=== PATIENT | female | born 1955 | race Caucasian/White ===

== ENCOUNTER 2017-01-06 17:39 | Emergency (ER) | payer MEDICAID ==
[~2017-01-06] VITALS: Ht 142.2 cm; Wt 138.3 kg
[~2017-01-06 17:39] MED LIST: AMLO5TAB8 PO; ATOR20TA PO; HUM SUBQ; IBUP-974 PO; INSU100S22 SC; LOSA100T1 PO
[2017-01-06 17:49] VITALS: BP 161/83
[2017-01-06] MEDS ORDERED: ALBU-136 INH (17:58)
[2017-01-06] MEDS ORDERED: FURO-572 PO (17:58)
[2017-01-06] MEDS ORDERED: NACL 0.9% 1,000 ML IV SCH (18:16)
[2017-01-06] MEDS ORDERED: FAMOTIDINE 20 MG/2 ML VIAL IVP ONE (18:20)
[2017-01-06] MEDS ORDERED: ONDANSETRON 4 MG/2 ML VIAL IVP ONE (18:20)
--- NOTE | 2017-01-06 18:45 | NUR ---
PT W/C TO BED 4.
--- NOTE | 2017-01-06 18:58 | NUR ---
61F BIB FAMILY C/O BL LOWER ABDOMINAL PAIN, RADIATES TO LOWER BACK, ACHING, 10/10 X 3 DAYS; PT DENIES TRAUMA OR INJURY TO SITE; PT C/O 1 EPISODE OF VOMITING, BUT DENIES DIARRHEA AT THIS TIME; ABDOMEN ROUND, SOFT, NON-TENDER, ACTIVE BOWEL SOUNDS X 4 QUADRANTS; PT A&OX4, PERRLA, BL LUNG SOUNDS CLEAR, RR EVEN/UNLABORED, SKIN IS WARM/DRY/INTACT AT THIS TIME; PT PLACED ON MONITOR, RESTING IN BED W/ HOB ELEVATED AND IN LOWEST POSITION; POSITIONED FOR COMFORT; HX: DM, HTN, HYPERLIPIDEMIA, ASHTMA; ER MD MADE AWARE OF STATUS. WILL CONTINUE TO MONITOR.
[2017-01-06 19:03] LABS: BASOPHILS # (AUTO) 0.2 K/uL (0.00-0.22); BASOPHILS % (AUTO) 2.4 % (0.0-2.0); EOSINOPHILS # (AUTO) 0.3 K/uL (0-0.4); EOSINOPHILS % (AUTO) 3.2 % (0.0-4.0); HEMATOCRIT 41.8 % (36-48); HEMOGLOBIN 13.5 g/dL (12.0-16.0); LYMPHOCYTES # (AUTO) 2.1 K/uL (2.5-16.5); LYMPHOCYTES % (AUTO) 25.4 % (20.5-51.1); MEAN CORPUSCULAR HEMOGLOBIN 29 pg (27-31); MEAN CORPUSCULAR HGB CONC 32 g/dL (33-37); MEAN CORPUSCULAR VOLUME 89 fL (80-94); MONOCYTES # (AUTO) 0.6 K/uL (0.8-1.0); NEUTROPHILS # (AUTO) 5.1 K/uL (1.8-7.7); PLATELET COUNT (AUTO) 217 K/uL (140-450); RED BLOOD CELL COUNT(AUTO) 4.69 MIL/uL (4.20-5.40); RED CELL DISTRIBUTION WIDTH 13.2 % (11.6-13.7); WHITE BLOOD COUNT (AUTO) 8.3 K/uL (4.8-10.8)
[2017-01-06 19:07] LABS: APPEARANCE,URINE CLEAR (CLEAR); BILIRUBIN,URINE NEGATIVE (NEGATIVE); BLOOD, URINE TRACE-I (NEGATIVE); COLOR,URINE YELLOW (YELLOW); LEUKOCYTE ESTERASE ,URINE NEGATIVE (NEGATIVE); NITRITE, URINE NEGATIVE (NEGATIVE); PROTEIN,URINE NEGATIVE (NEGATIVE); UGLUCOSE NEGATIVE (NEGATIVE); UROBILINOGEN,URINE 0.2 EU/dL (0.2 - 1)
[2017-01-06 19:08] LABS: RBC,URINE 0-3 /HPF (0-5); WBC,URINE 0-3 /HPF (0-5)
[2017-01-06 19:09] LABS: BACTERIA,URINE RARE /HPF (None Seen)
--- NOTE | 2017-01-06 19:10 | NUR ---
Pt report given to ROYER SILVERMAN. Transfer of care at this time.
[2017-01-06 19:12] LABS: ANION GAP 10.9 (8-16); CALCIUM 8.8 mg/dL (8.5-10.1); CARBON DIOXIDE 30.1 mmol/L (21-32); CREATININE 0.8 mg/dL (0.6-1.3)
--- NOTE | 2017-01-06 19:12 | NUR ---
GET REPORT FROM ROYER LARA. PT. RESTING IN BED, NO S/SX DISTRESS AT THIS TIME.
[2017-01-06] MEDS ORDERED: diphenhydrAMINE 50 MG/ML VIAL IVP ONE (19:15)
[2017-01-06] MEDS ORDERED: MORPHINE SULFATE 4 MG/ML SYR IVP ONE (19:15)
[2017-01-06 19:18] LABS: ALBUMIN 3.6 g/dL (3.4-5.0); TOTAL BILIRUBIN 0.3 mg/dL (0.0-1.0); TOTAL PROTEIN, SERUM 8.2 g/dL (6.4-8.2)
--- NOTE | 2017-01-06 19:29 | NUR ---
Patient going to CT via [facility].
--- NOTE | 2017-01-06 20:15 | NUR ---
[facility]
--- NOTE | 2017-01-06 21:50 | NUR ---
Patient appears to be resting comfortably in bed. Vital Signs within normal limits. Respirations even and unlabored.
--- NOTE | 2017-01-06 23:00 | NUR ---
Patient discharged with v/s stable. Written and verbal after care instructions given and explained. Patient alert, oriented and verbalized understanding of instructions. Wheel Chair Assisted with to car. All questions addressed prior to discharge. ID band removed. Patient advised to follow up with PMD. Rx of NORCO 5/325 MG given. Patient educated on indication of medication including possible reaction and side effects. Opportunity to ask questions provided and answered.
[2017-01-06 23:06] VITALS: BP 139/66
== END 2017-01-06 23:00 | disposition home or self-care (01) ==
LOC: MED 17:39
DX: R10.30 Lower abdominal pain, unspecified (principal); R51 Headache; R11.2 Nausea with vomiting, unspecified; E11.9 Type 2 diabetes mellitus without complications; I10 Essential (primary) hypertension; E78.5 Hyperlipidemia, unspecified; Z88.8 Allergy status to other drugs, medicaments and biological substances
CPT/HCPCS: 36415; 74177; 80053; 81001; 81025; 82150; 83690; 85025; 96361; 96374; 96375; 99285; J1200; J2270; J2405; J3490; J7030; Q9967; 96360